=== PATIENT | male | born 1955 | race Caucasian/White ===

== ENCOUNTER 2017-07-11 05:26 | Inpatient (IN) | payer OTHER ==
[2017-07-11] MEDS ORDERED: NS 0.9% 1000 ML* 2,000 ML IV ONE (06:06)
[2017-07-11] MEDS ORDERED: Ondansetron INJ* 2 MG/ML VIAL IV ONE (06:06)
[2017-07-11] MEDS ORDERED: Pantoprazole IV* 40 MG IV ONE (06:06)
[2017-07-11] MEDS ORDERED: Al Hydrox/Mg Hydrox/Simet LIQ* 30 ML UDC PO ONE (06:06)
[2017-07-11] MEDS ORDERED: Lidocaine 2% VISCOUS* 15 ML UDC PO ONE (06:06)
[2017-07-11 06:55] LABS: ABS Basophils 0.2 10^3/ul (0-0.2); ABS Eosinophils 0.2 10^3/ul (0-0.6); ABS Lymphocytes 1.7 10^3/ul (1.0-4.8); ABS Neutrophils 10.1 10^3/ul (1.5-7.7); ABS Nucleated RBC 0 10^3/ul; Eosinophil % 1.3 % (0-6); Hematocrit 25 % (42-52); Hemoglobin 8.5 g/dl (14.0-18.0); Lymphocyte % 13.1 % (25-47); Mean Corpuscular HGB Conc 34 g/dl (31-36); Mean Corpuscular Hemoglobin 33 pg (27-31); Mean Corpuscular Volume 96 fL (80-94); Mean Platelet Volume 6 um3 (7.4-10.4); Nucleated Red Blood Cells % 0; Platelet Count 640 10^3/ul (150-450); Red Blood Count 2.59 10^6/ul (4.0-5.4); Red Cell Distribution Width 15 % (10.5-15); White Blood Count 13.2 10^3/ul (3.5-10.8)
[2017-07-11 07:05] LABS: EGFR Non-African American 76.6 (>60)
[2017-07-11 07:12] LABS: INR 0.86 (0.77-1.02)
--- NOTE | 2017-07-11 07:28 | ED ---
Roseline Long Thomas, scribed for Moses Rodriguez MD on 07/11/17 at 0608 . Abdominal Pain/Male - HPI Summary HPI Summary: The patient is a 61 year old male presenting to the emergency department complaining of abdominal pain for the last three weeks. The pain is rated 10/ 10. The pain radiates to his back. The pain is alleviated by food. The patient had a similar episode of abdominal pain last year that coincided with taking many caffeine pills. The patient additionally complains of nausea, vomiting, and black stools. He has been taking Pepto Bismol. The patient denies constipation. - History of Current Complaint Chief Complaint: EDAbdPain Stated Complaint: ABD PAIN, VOMITING, WEAKNESS Time Seen by Provider: 07/11/17 05:59 Hx Obtained From: Patient Onset/Duration: Lasting Weeks - 3, Still Present Timing: Lasting Weeks - 3 Severity Currently: Severe Pain Intensity: 10 Pain Scale Used: 0-10 Numeric Aggravating Factor(s): Nothing Alleviating Factor(s): Other: - Taking food Associated Signs And Symptoms: Positive: Other - Nausea, vomiting, black stools ; NEGATIVE: constipation - Allergies/Home Medications Allergies/Adverse Reactions: Allergies Allergy/AdvReac Type Severity Reaction Status Date / Time No Known Allergies Allergy Verified 07/11/17 05:32 PMH/Surg Hx/FS Hx/Imm Hx Sensory History: Denies: Hx Legally Blind EENT History: Denies: Hx Deafness Infectious Disease History: No Infectious Disease History: Denies: Traveled Outside the [place] in Last 30 Days - Family History Known Family History: Positive: Other - Patient denies any family history of disease - Social History Alcohol Use: None Substance Use Type: Reports: Excessive Caffeine, Marijuana Smoking Status (MU): Heavy Every Day Tobacco Smoker Review of Systems Negative: Fever Positive: Abdominal Pain, Vomiting, Nausea, Other - black stools; NEGATIVE: constipation All Other Systems Reviewed And Are Negative: Yes Physical Exam - Summary Physical Exam Summary: General: well-appearing, mild pain distress Skin: warm, color reflects adequate perfusion, dry Head: normal Eyes: EOMI, GLADYS ENT: normal Neck: supple, nontender Respiratory: CTA, breath sounds present Cardiovascular: RRR Abdomen: Soft. He is tender to the epigastrium. Bowel: Hypoactive. Musculoskeletal: normal, strength/ROM intact Neurological: normal, sensory/motor intact, A&O x3 Psychological: affect/mood appropriate Triage Information Reviewed: Yes Vital Signs On Initial Exam: Initial Vitals Temp Pulse Resp BP Pulse Ox 98.5 F 134 23 138/98 94 07/11/17 05:29 07/11/17 05:29 07/11/17 05:29 07/11/17 05:29 07/11/17 05:29 Vital Signs Reviewed: Yes Diagnostics - Vital Signs Vital Signs Temp Pulse Resp BP Pulse Ox 07/11/17 05:29 98.5 F 134 23 138/98 94 - Laboratory Lab Results: Lab Results 07/11/17 07/11/17 07/11/17 Range/Units 06:00 06:00 06:00 WBC 13.2 H (3.5-10.8) 10^3/ul RBC 2.59 L (4.0-5.4) 10^6/ul Hgb 8.5 L (14.0-18.0) g/dl Hct 25 L (42-52) % MCV 96 H (80-94) fL MCH 33 H (27-31) pg MCHC 34 (31-36) g/dl RDW 15 (10.5-15) % Plt Count 640 H (150-450) 10^3/ul MPV 6 L (7.4-10.4) um3 Neut % (Auto) 76.6 (38-83) % Lymph % (Auto) 13.1 L (25-47) % Wake % (Auto) 7.8 (1-9) % Eos % (Auto) 1.3 (0-6) % Baso % (Auto) 1.2 (0-2) % Absolute Neuts (auto) 10.1 H (1.5-7.7) 10^3/ul Absolute Lymphs (auto) 1.7 (1.0-4.8) 10^3/ul Absolute Monos (auto) 1.0 H (0-0.8) 10^3/ul Absolute Eos (auto) 0.2 (0-0.6) 10^3/ul Absolute Basos (auto) 0.2 (0-0.2) 10^3/ul Absolute Nucleated RBC 0 10^3/ul Nucleated RBC % 0 INR (Anticoag Therapy) 0.86 (0.77-1.02) APTT 26.4 (26.0-36.3) seconds Sodium 135 (133-145) mmol/L Potassium 4.4 (3.5-5.0) mmol/L Chloride 99 L (101-111) mmol/L Carbon Dioxide 28 (22-32) mmol/L Anion Gap 8 (2-11) mmol/L BUN 33 H (6-24) mg/dL Creatinine 0.99 (0.67-1.17) mg/dL Est GFR ( Amer) 98.5 (>60) Est GFR (Non-Af Amer) 76.6 (>60) BUN/Creatinine Ratio 33.3 H (8-20) Glucose 117 H (70-100) mg/dL Lactic Acid (0.5-2.0) mmol/L Calcium 9.4 (8.6-10.3) mg/dL Total Bilirubin 0.20 (0.2-1.0) mg/dL AST 14 (13-39) U/L ALT 15 (7-52) U/L Alkaline Phosphatase 73 (34-104) U/L Troponin I 0.00 (<0.04) ng/mL C-Reactive Protein 7.25 H (< 5.00) mg/L Total Protein 7.0 (6.4-8.9) g/dL Albumin 4.1 (3.2-5.2) g/dL Globulin 2.9 (2-4) g/dL Albumin/Globulin Ratio 1.4 (1-3) Lipase 41 (11.0-82.0) U/L 07/11/17 Range/Units 06:00 WBC (3.5-10.8) 10^3/ul RBC (4.0-5.4) 10^6/ul Hgb (14.0-18.0) g/dl Hct (42-52) % MCV (80-94) fL MCH (27-31) pg MCHC (31-36) g/dl RDW (10.5-15) % Plt Count (150-450) 10^3/ul MPV (7.4-10.4) um3 Neut % (Auto) (38-83) % Lymph % (Auto) (25-47) % Wake % (Auto) (1-9) % Eos % (Auto) (0-6) % Baso % (Auto) (0-2) % Absolute Neuts (auto) (1.5-7.7) 10^3/ul Absolute Lymphs (auto) (1.0-4.8) 10^3/ul Absolute Monos (auto) (0-0.8) 10^3/ul Absolute Eos (auto) (0-0.6) 10^3/ul Absolute Basos (auto) (0-0.2) 10^3/ul Absolute Nucleated RBC 10^3/ul Nucleated RBC % INR (Anticoag Therapy) (0.77-1.02) APTT (26.0-36.3) seconds Sodium (133-145) mmol/L Potassium (3.5-5.0) mmol/L Chloride (101-111) mmol/L Carbon Dioxide (22-32) mmol/L Anion Gap (2-11) mmol/L BUN (6-24) mg/dL Creatinine (0.67-1.17) mg/dL Est GFR ( Amer) (>60) Est GFR (Non-Af Amer) (>60) BUN/Creatinine Ratio (8-20) Glucose (70-100) mg/dL Lactic Acid 1.0 (0.5-2.0) mmol/L Calcium (8.6-10.3) mg/dL Total Bilirubin (0.2-1.0) mg/dL AST (13-39) U/L ALT (7-52) U/L Alkaline Phosphatase (34-104) U/L Troponin I (<0.04) ng/mL C-Reactive Protein (< 5.00) mg/L Total Protein (6.4-8.9) g/dL Albumin (3.2-5.2) g/dL Globulin (2-4) g/dL Albumin/Globulin Ratio (1-3) Lipase (11.0-82.0) U/L Result Diagrams: 07/11/17 06:00 07/11/17 06:00 Lab Statement: Any lab studies that have been ordered have been reviewed, and results considered in the medical decision making process. - CT CT Abd/Pel CT Interpretation Completed By: ED Physician - CT Abd/Pel is ordered--see [facility] - EKG 06:20 Cardiac Rate: Tachycardia EKG Rhythm: Sinus Tachycardia - at [address] Segment: Normal Ectopy: None Abdominal Pain Fem Course/Dx - Course Course Of Treatment: Medications reviewed. BP noted and patient urged primary care follow-up. CT AND DISPOSITION PENDING AT SHIFT CHANGE - Diagnoses Provider Diagnoses: Elevated BP without diagnosis of hypertension, Abdominal pain Discharge - Discharge Plan Condition: Stable Disposition: OTHER Discharge Disposition Comment: . Referrals: No Primary Care Phys,NOPCP [Primary Care Provider] - The documentation as recorded by the Roseline gordon Thomas accurately reflects the service I personally performed and the decisions made by me, Moses Rodriguez MD.
[2017-07-11 07:30] LABS: Urine Appearance Cloudy; Urine Blood Negative (Negative); Urine Color Yellow; Urine Ketones Negative (Negative); Urine Protein Negative (Negative); Urine Specific Gravity 1.016 (1.010-1.030); Urine Urobilinogen Negative (Negative)
[2017-07-11] MEDS ORDERED: Iohexol 300* (CONTRAST) 10 ML SDV IV ONE (08:24)
--- NOTE | 2017-07-11 09:04 | RAD ---
INDICATION: Abdominal pain and nausea for 3 weeks COMPARISON: None TECHNIQUE: Axial source images were obtained from the hemidiaphragms to the symphysis pubis following administration of oral and intravenous contrast. 60 mL Omnipaque 300 was utilized. Coronal and sagittal reconstructed images were acquired. Lung bases: There is mild right basilar atelectasis or scarring. Liver: The liver is normal in size. There is an 8 mm left hepatic lobe cyst. There is no ductal dilatation. Gallbladder: There are no calcified gallstones. There is no evidence of wall thickening or pericholecystic fluid. Spleen: The spleen is normal in size. There are several splenic calcifications. Pancreas: There is no focal pancreatic mass or ductal dilatation. Adrenal glands: There is no evidence of adrenal mass. Kidneys: The kidneys are normal in size and position. There are prompt nephrograms and there is prompt excretion bilaterally. There are no renal parenchymal masses. There is no evidence of nephrolithiasis. Adenopathy: There is no evidence of adenopathy by size criteria. Fluid collections: There are no free or localized fluid collections. Vessels:There are no significant atherosclerotic changes involving the aorta. There is no focal aneurysm. The iliac vessels are normal in caliber. The IVC appears normal. GI tract: There are no acute CT bowel findings. There is no obstruction. The stomach and small bowel appear normal. There is retained stool and mild colonic redundancy. There are scattered diverticula of the sigmoid colon with mild wall thickening. This may be related to chronic change. There is no perienteric stranding to suggest acute diverticulitis. The appendix is visualized and appears normal. Pelvic organs: The prostate and seminal vesicles appear normal Bladder: There are no bladder masses. Abdominal and pelvic soft tissues: The extraperitoneal abdominal and pelvic soft tissues appear normal.. Osseous structures: There are no acute osseous findings. There is lumbar spine straightening with advanced degenerative disc disease at L1-L2. Other: None IMPRESSION: NO ACUTE CT FINDINGS. NO MASS OR INFLAMMATORY CHANGES. RETAINED STOOL WITH SCATTERED DIVERTICULA OF THE SIGMOID COLON.
[2017-07-11] MEDS ORDERED: Morphine INJ* 4 MG/ML 1 ML CARPUJECT IV ONE (09:28)
[2017-07-11] MEDS: Pantoprazole IV* 80 MG in NS 0.9% 250 ML* 250 ML IV SCH ×2 (09:54→20:23)
--- NOTE | 2017-07-11 10:15 | ADMNOTE ---
Subjective Date of Service: 07/11/17 Interval History: ADMISSION HISTORY AND PHYSICAL EXAM: Allergies Allergy/AdvReac Type Severity Reaction Status Date / Time No Known Allergies Allergy Verified 07/11/17 05:32 Home Medications Medication Instructions Recorded Confirmed Type Lysktay-Cfctqkcwyphee-Vmyetirz 1 tab PO Q1H PRN 12/23/12 07/11/17 History [Excedrin Migraine] HPI: The patient states he developed epigastric pain 3 weeks ago and started taking ASA/caffeine many per day for this. He occ vomits milky or vega emesis. He started taking Pepto-Bismol and began having black stools, one per day. The pain got worse and he had his sister drive him to the ED. Family History: Findings - unremakable Social History: Findings - Lives alone. Single. Retired. His sister Trini Lerma is his SDM. Heavy alcohol (over 2 cases beer per day) until about 1 yr ago. Smoker. Past Medical History: Findings - Never hospitalized, no surgery. Review of Systems - Review of Systems Constitutional Symptoms: Positive: Weight Loss - 25-30 lbs in past few months. Dermatology: Positive: Normal HEENT: Positive: Normal Eyes: Positive: Normal Thyroid: Positive: Normal Pulmonary: Positive: Other - hyperventilation this AM Cardiology: Positive: Normal Gastroenterology: Positive: Abdominal Pain, Vomiting Genital - Urinary: Positive: Normal Musculoskeletal: Positive: Low Back Pain Endocrinology: Positive: Normal Hematologic/Lymphatic: Positive: Anemia Neurology: Positive: Normal Psychiatry: Positive: Normal Allergic/Immunologic: Negative: Hx Anaphylaxis, Hx Angioedema, Hx Environmental, Hx Seasonal, Athsma, Hx HIV, Immunocompromise, Swollen Glands LymphNodes, Other Objective Active Medications: Pantoprazole Sodium 80 mg/ (Sodium Chloride) 250 mls @ 25 mls/hr IV Q10H BEBA Last Admin: 07/11/17 09:54 Dose: 25 mls/hr Vital Signs - 8 hr 07/11/17 07/11/17 07/11/17 09:41 09:44 09:54 Temperature Pulse Rate 102 Respiratory 14 18 Rate Blood Pressure 152/82 (mmHg) O2 Sat by Pulse 97 Oximetry 07/11/17 10:09 Temperature 0 F Pulse Rate 0 Respiratory 0 Rate Blood Pressure 00/0 (mmHg) O2 Sat by Pulse 0 Oximetry Oxygen Devices in Use Now: None Appearance: Alert, sitting up in ICU bed. In fair spirits. Looks comfortable. Ears/Nose/Mouth/Throat: Clear Oropharnyx, Mucous Membranes Moist Neck: NL Appearance and Movements; NL JVP, No Thyroid Enlargement, Masses Respiratory: Symmetrical Chest Expansion and Respiratory Effort, Clear to Auscultation, Clear to Percussion Cardiovascular: RRR, No Edema, - - 1/6 systolic murmur across precordium, reg Extremities: No Edema, No Clubbing, Cyanosis, - Skin: No Rash or Ulcers, No Nodules or Sclerosis Neurological: Alert and Oriented x 3, NL Sensation Result Diagrams: 07/11/17 06:00 07/11/17 06:00 Additional Lab and Data: Lab Results 07/11/17 07/11/17 07/11/17 Range/Units 06:00 06:00 06:00 WBC 13.2 H (3.5-10.8) 10^3/ul RBC 2.59 L (4.0-5.4) 10^6/ul Hgb 8.5 L (14.0-18.0) g/dl Hct 25 L (42-52) % MCV 96 H (80-94) fL MCH 33 H (27-31) pg MCHC 34 (31-36) g/dl RDW 15 (10.5-15) % Plt Count 640 H (150-450) 10^3/ul MPV 6 L (7.4-10.4) um3 Neut % (Auto) 76.6 (38-83) % Lymph % (Auto) 13.1 L (25-47) % Woodruff % (Auto) 7.8 (1-9) % Eos % (Auto) 1.3 (0-6) % Baso % (Auto) 1.2 (0-2) % Absolute Neuts (auto) 10.1 H (1.5-7.7) 10^3/ul Absolute Lymphs (auto) 1.7 (1.0-4.8) 10^3/ul Absolute Monos (auto) 1.0 H (0-0.8) 10^3/ul Absolute Eos (auto) 0.2 (0-0.6) 10^3/ul Absolute Basos (auto) 0.2 (0-0.2) 10^3/ul Absolute Nucleated RBC 0 10^3/ul Nucleated RBC % 0 INR (Anticoag Therapy) 0.86 (0.77-1.02) APTT 26.4 (26.0-36.3) seconds Sodium 135 (133-145) mmol/L Potassium 4.4 (3.5-5.0) mmol/L Chloride 99 L (101-111) mmol/L Carbon Dioxide 28 (22-32) mmol/L Anion Gap 8 (2-11) mmol/L BUN 33 H (6-24) mg/dL Creatinine 0.99 (0.67-1.17) mg/dL Est GFR ( Amer) 98.5 (>60) Est GFR (Non-Af Amer) 76.6 (>60) BUN/Creatinine Ratio 33.3 H (8-20) Glucose 117 H (70-100) mg/dL Lactic Acid (0.5-2.0) mmol/L Calcium 9.4 (8.6-10.3) mg/dL Total Bilirubin 0.20 (0.2-1.0) mg/dL AST 14 (13-39) U/L ALT 15 (7-52) U/L Alkaline Phosphatase 73 (34-104) U/L Troponin I 0.00 (<0.04) ng/mL C-Reactive Protein 7.25 H (< 5.00) mg/L Total Protein 7.0 (6.4-8.9) g/dL Albumin 4.1 (3.2-5.2) g/dL Globulin 2.9 (2-4) g/dL Albumin/Globulin Ratio 1.4 (1-3) Lipase 41 (11.0-82.0) U/L 07/11/17 Range/Units 06:00 WBC (3.5-10.8) 10^3/ul RBC (4.0-5.4) 10^6/ul Hgb (14.0-18.0) g/dl Hct (42-52) % MCV (80-94) fL MCH (27-31) pg MCHC (31-36) g/dl RDW (10.5-15) % Plt Count (150-450) 10^3/ul MPV (7.4-10.4) um3 Neut % (Auto) (38-83) % Lymph % (Auto) (25-47) % Woodruff % (Auto) (1-9) % Eos % (Auto) (0-6) % Baso % (Auto) (0-2) % Absolute Neuts (auto) (1.5-7.7) 10^3/ul Absolute Lymphs (auto) (1.0-4.8) 10^3/ul Absolute Monos (auto) (0-0.8) 10^3/ul Absolute Eos (auto) (0-0.6) 10^3/ul Absolute Basos (auto) (0-0.2) 10^3/ul Absolute Nucleated RBC 10^3/ul Nucleated RBC % INR (Anticoag Therapy) (0.77-1.02) APTT (26.0-36.3) seconds Sodium (133-145) mmol/L Potassium (3.5-5.0) mmol/L Chloride (101-111) mmol/L Carbon Dioxide (22-32) mmol/L Anion Gap (2-11) mmol/L BUN (6-24) mg/dL Creatinine (0.67-1.17) mg/dL Est GFR ( Amer) (>60) Est GFR (Non-Af Amer) (>60) BUN/Creatinine Ratio (8-20) Glucose (70-100) mg/dL Lactic Acid 1.0 (0.5-2.0) mmol/L Calcium (8.6-10.3) mg/dL Total Bilirubin (0.2-1.0) mg/dL AST (13-39) U/L ALT (7-52) U/L Alkaline Phosphatase (34-104) U/L Troponin I (<0.04) ng/mL C-Reactive Protein (< 5.00) mg/L Total Protein (6.4-8.9) g/dL Albumin (3.2-5.2) g/dL Globulin (2-4) g/dL Albumin/Globulin Ratio (1-3) Lipase (11.0-82.0) U/L Assess/Plan/Problems-Billing Assessment: - Patient Problems (1) UGI bleed Current Visit: Yes Status: Acute Code(s): K92.2 - GASTROINTESTINAL HEMORRHAGE, UNSPECIFIED SNOMED Code(s): 80116526 Comment: EGD 07/11. CBC, BMP 2/. (2) Chronic alcohol abuse Current Visit: Yes Status: Acute Code(s): F10.10 - ALCOHOL ABUSE, UNCOMPLICATED SNOMED Code(s): 335554861 Comment: Pt states he stopped heavy drinking about a year ago. (3) Tobacco abuse Current Visit: Yes Status: Acute Code(s): Z72.0 - TOBACCO USE SNOMED Code( s): 235564070 Comment: Pt advised to quit smoking and avoid second hand smoke. Nictoine patch ordered.
[2017-07-11] MEDS: Nicotine PATCH 14 MG/24 HR* PATCH TRANSDERM SCH (12:12)
[2017-07-11] MEDS ORDERED: NS 0.9% 1000 ML* 1,000 ML IV SCH (12:15)
[2017-07-11] MEDS: Morphine INJ* 10 MG/ML 1 ML CARPUJECT IV PRN ×3 (13:02→21:58)
[2017-07-11] MEDS ORDERED: fentaNYL* 50 MCG/ML 2 ML VIAL (100 MCG VIAL) ONE (16:13)
[2017-07-11] MEDS ORDERED: Midazolam* 1 MG/ML 10 ML VIAL (10 MG) ONE (16:14)
[2017-07-11] MEDS ORDERED: Naloxone* 0.4 MG/ML 1 ML VIAL ONE (16:23)
[2017-07-11] MEDS ORDERED: Flumazenil* 0.1 MG/ML 5 ML MDV ONE (16:23)
[2017-07-11] MEDS: NS 0.9% 1000 ML* 1,000 ML IV SCH (18:37)
--- NOTE | 2017-07-11 21:32 | CONS ---
CONSULTATION REPORT: DATE OF CONSULT: 07/11/17 REQUESTING PHYSICIAN: Berhane Clark MD INDICATION: Melena. NARRATIVE: Mr. Lerma is a 61-year-old gentleman who comes in with 3 weeks for epigastric pain. He started taking aspirin and caffeine tablets due to this pain. He states that he has been vomiting usually frothy material, nonbloody. His stools have been black. However, he blames this on the Pepto-Bismol he has been taking. He does state that he has lost approximately 10 to 15 pounds over the past few months. He denies any acid reflux. No dysphagia. No change in his bowel habits, constipation, or diarrhea. He was an active drinker up until about a year ago. PAST MEDICAL HISTORY: None. SURGERIES: None. SOCIAL HISTORY: He quit alcohol a year ago. No tobacco. REVIEW OF SYSTEMS: 12 systems were reviewed and other than mentioned in the HPI were unremarkable. PHYSICAL EXAM: Vital signs were stable. Temperature is 98.7, blood pressure 135/82, heart rate of 89. General: Middle-aged appearing male, in no apparent distress. Alert, oriented, pleasant, fluent. HEENT: Mucous membranes are moist. Dentition is poor. Neck: Supple. Trachea is midline. Skin: Warm and dry. Numerous tattoos. Heart: Regular rate and rhythm, tachy. Lungs: Clear to auscultation. Abdomen: Positive bowel sounds. Soft, nontender, nondistended. DIAGNOSTIC STUDIES/LAB DATA: Labs of note, his hemoglobin is 8.5, white count of 13.2, platelets of 640, INR is 0.86, chloride is 99, BUN is 33. C-reactive protein 7.25. He has got a CT, which shows no acute GI pathology other than diverticulosis. ASSESSMENT AND PLAN: A 61-year-old gentleman with melena and anemia, who takes a large amount of aspirin and has abdominal pain. I would like to perform an upper endoscopy to evaluate for any peptic ulcer disease, erosive esophagitis. Given his alcohol use, any varices, I will make arrangements for his EGD in the very near future. He needs to be on PPI and avoid all nonsteroidals. [id number]/[facility] #: [id number] [facility]
[2017-07-12] MEDS: Nicotine Patch Removal NOTE PATCH OFF SCH ×2 (00:21→20:32)
--- NOTE | 2017-07-12 00:47 | PRO ---
DATE OF PROCEDURE: 07/11/17 - ROOM #ICU-06 LOCATION: Performed in the ICU. PROCEDURE: EGD. INDICATION: Melena and anemia. REFERRING PHYSICIAN: Dr. Clark. MEDICATIONS GIVEN: 10 mg IV Versed, 50 mcg IV fentanyl. DESCRIPTION OF PROCEDURE: After the EGD procedure including the risks, benefits , and alternatives not limited to perforation, surgery and/or were explained to the patient, written consent was then obtained, IV medication was given and a bite- block was placed between the teeth. An Olympus gastroscope was then inserted into the patient's mouth, advanced down the esophagus, into the stomach and into the distal duodenum. In the esophagus, there were numerous large ulcers at the GE junction, they were all clean base. This was consistent with grade C erosive esophagitis. He does have a large hiatal hernia. The patient did become somewhat animated. At this point, additional doses of Versed and fentanyl were given. I was able to navigate through a medium size hiatal hernia into the body of the stomach. In the prepyloric region, there was a medium-sized ulcer. It again was clean base. There was no evidence of bleeding and then I was able to get down into the small intestine for brief views of the duodenal bulb. Again, the patient was very animated and was starting to grab at the scope, despite the fact we had soft on. I was able to get a biopsy for H. pylori and then needed to withdraw the scope due to the patient's combative nature. The scope was withdrawn. He did settle down very nicely once the scope was withdrawn from the patient. IMPRESSION: 1. Complete upper endoscopy into the duodenum bulb with biopsy. 2. Grade C erosive esophagitis. 3. Prepyloric ulcer nonbleeding. 4. Duodenal erosions. 5. Biopsy for H. pylori. 6. Likely the ulcerations in his stomach and duodenum are due to his massive aspirin use. He also has erosive esophagitis from gastroesophageal reflux disease. I would like him to use omeprazole 40 mg twice a day. I would like to repeat his endoscopy in the next 1 to 2 weeks for multiple reasons; one is to confirm healing of the ulcers, two is to biopsy for Oh's esophagus and three given the fact that the patient was very combative during this procedure, I would like to take a better look due to limited view due the patient's combativeness. [id number]/[facility] #: [id number] ERICH
[2017-07-12] MEDS: Morphine INJ* 10 MG/ML 1 ML CARPUJECT IV PRN ×4 (02:08→11:22)
[2017-07-12] MEDS ORDERED: Ondansetron INJ* 2 MG/ML VIAL ONE (02:17)
[2017-07-12] MEDS: Ondansetron INJ* 2 MG/ML VIAL IV PRN ×3 (02:19→18:47)
[2017-07-12 05:38] LABS: ABS Basophils 0.4 10^3/ul (0-0.2); ABS Eosinophils 0.2 10^3/ul (0-0.6); ABS Lymphocytes 1.6 10^3/ul (1.0-4.8); ABS Monocytes 0.9 10^3/ul (0-0.8); ABS Neutrophils 10.7 10^3/ul (1.5-7.7); ABS Nucleated RBC 0 10^3/ul; Eosinophil % 1.3 % (0-6); Hematocrit 23 % (42-52); Hemoglobin 7.7 g/dl (14.0-18.0); Lymphocyte % 11.3 % (25-47); Mean Corpuscular HGB Conc 33 g/dl (31-36); Mean Corpuscular Hemoglobin 32 pg (27-31); Mean Corpuscular Volume 97 fL (80-94); Mean Platelet Volume 6 um3 (7.4-10.4); Nucleated Red Blood Cells % 0; Platelet Count 576 10^3/ul (150-450); Red Blood Count 2.39 10^6/ul (4.0-5.4); Red Cell Distribution Width 15 % (10.5-15); White Blood Count 13.7 10^3/ul (3.5-10.8)
[2017-07-12 05:51] LABS: EGFR Non-African American 102.4 (>60)
[2017-07-12] MEDS: Pantoprazole IV* 80 MG in NS 0.9% 250 ML* 250 ML IV SCH ×2 (06:02→17:15)
[2017-07-12] MEDS: Nicotine PATCH 14 MG/24 HR* PATCH TRANSDERM SCH (08:14)
[2017-07-12] MEDS: NS 0.9% 1000 ML* 1,000 ML IV SCH ×2 (10:35→17:16)
--- NOTE | 2017-07-12 13:31 | PN ---
Subjective Date of Service: 07/12/17 Interval History: Intermittent nausea. Pain less today, still asks for MS frequently. Family History: Findings - unremakable Social History: Findings - Lives alone. Single. Retired. His sister Trini Lerma is his SDM. Heavy alcohol (over 2 cases beer per day) until about 1 yr ago. Smoker. Past Medical History: Findings - Never hospitalized, no surgery. Objective Active Medications: Pantoprazole Sodium 80 mg/ (Sodium Chloride) 250 mls @ 25 mls/hr IV Q10H [facility] Stop: 07/13/17 08:00 Last Admin: 07/12/17 06:02 Dose: 25 mls/hr Sodium Chloride (Ns 0.9% 1000 Ml*) 1,000 mls @ 60 mls/hr IV PER RATE [facility] Stop: 07/13/17 06:00 Last Admin: 07/12/17 10:35 Dose: 60 mls/hr Morphine Sulfate (Morphine Inj (Syringe)*) 6 mg IV Q3H PRN PRN Reason: SEVERE PAIN Last Admin: 07/12/17 11:22 Dose: 6 mg Nicotine (Nicotine Patch 14 Mg/24 Hr*) 1 patch TRANSDERM DAILY [facility] Last Admin: 07/12/17 08:14 Dose: 1 patch Ondansetron HCl (Zofran Inj*) 4 mg IV Q6H PRN PRN Reason: NAUSEA Last Admin: 07/12/17 10:07 Dose: 4 mg Pharmacy Profile Note (Nicotine Patch Removal Note*) 1 note PATCH OFF 2100 [facility] Last Admin: 07/12/17 00:21 Dose: Not Given Trimethobenzamide HCl (Tigan Cap*) 300 mg PO QID [facility] Vital Signs - 8 hr 07/12/17 07/12/17 07/12/17 06:00 06:52 07:00 Temperature Pulse Rate 78 78 Respiratory 11 11 12 Rate Blood Pressure 107/62 104/61 (mmHg) O2 Sat by Pulse 96 99 Oximetry 07/12/17 07/12/17 07/12/17 08:00 08:01 08:14 Temperature 98.6 F Pulse Rate 94 89 Respiratory 18 15 15 Rate Blood Pressure 110/75 (mmHg) O2 Sat by Pulse 99 97 Oximetry 07/12/17 07/12/17 07/12/17 09:00 10:00 11:00 Temperature Pulse Rate 75 70 84 Respiratory 15 16 12 Rate Blood Pressure 112/66 113/71 123/73 (mmHg) O2 Sat by Pulse 95 97 98 Oximetry 07/12/17 07/12/17 07/12/17 11:22 12:00 13:00 Temperature 98.8 F Pulse Rate 78 75 Respiratory 18 19 12 Rate Blood Pressure 111/73 119/68 (mmHg) O2 Sat by Pulse 97 97 Oximetry Oxygen Devices in Use Now: None Appearance: Alert, sitting up in ICU bed. In good spirits. Looks comfortable. Eyes: No Scleral Icterus Respiratory: Symmetrical Chest Expansion and Respiratory Effort, Clear to Auscultation, Clear to Percussion Cardiovascular: NL Sounds; No Murmurs; No JVD, RRR, No Edema, - Abdominal: NL Sounds; No Tenderness; No Distention, No Hepatosplenomegaly, - Extremities: No Edema, No Clubbing, Cyanosis, - Skin: No Rash or Ulcers, No Nodules or Sclerosis, - Neurological: Alert and Oriented x 3, NL Sensation Result Diagrams: 07/12/17 05:26 07/12/17 05:26 Additional Lab and Data: Lab Results 07/11/17 07/11/17 07/11/17 Range/Units 06:00 06:00 06:00 WBC 13.2 H (3.5-10.8) 10^3/ul RBC 2.59 L (4.0-5.4) 10^6/ul Hgb 8.5 L (14.0-18.0) g/dl Hct 25 L (42-52) % MCV 96 H (80-94) fL MCH 33 H (27-31) pg MCHC 34 (31-36) g/dl RDW 15 (10.5-15) % Plt Count 640 H (150-450) 10^3/ul MPV 6 L (7.4-10.4) um3 Neut % (Auto) 76.6 (38-83) % Lymph % (Auto) 13.1 L (25-47) % [place] % (Auto) 7.8 (1-9) % Eos % (Auto) 1.3 (0-6) % Baso % (Auto) 1.2 (0-2) % Absolute Neuts (auto) 10.1 H (1.5-7.7) 10^3/ul Absolute Lymphs (auto) 1.7 (1.0-4.8) 10^3/ul Absolute Monos (auto) 1.0 H (0-0.8) 10^3/ul Absolute Eos (auto) 0.2 (0-0.6) 10^3/ul Absolute Basos (auto) 0.2 (0-0.2) 10^3/ul Absolute Nucleated RBC 0 10^3/ul Nucleated RBC % 0 INR (Anticoag Therapy) 0.86 (0.77-1.02) APTT 26.4 (26.0-36.3) seconds Sodium 135 (133-145) mmol/L Potassium 4.4 (3.5-5.0) mmol/L Chloride 99 L (101-111) mmol/L Carbon Dioxide 28 (22-32) mmol/L Anion Gap 8 (2-11) mmol/L BUN 33 H (6-24) mg/dL Creatinine 0.99 (0.67-1.17) mg/dL Est GFR ( Amer) 98.5 (>60) Est GFR (Non-Af Amer) 76.6 (>60) BUN/Creatinine Ratio 33.3 H (8-20) Glucose 117 H (70-100) mg/dL Lactic Acid (0.5-2.0) mmol/L Calcium 9.4 (8.6-10.3) mg/dL Total Bilirubin 0.20 (0.2-1.0) mg/dL AST 14 (13-39) U/L ALT 15 (7-52) U/L Alkaline Phosphatase 73 (34-104) U/L Troponin I 0.00 (<0.04) ng/mL C-Reactive Protein 7.25 H (< 5.00) mg/L Total Protein 7.0 (6.4-8.9) g/dL Albumin 4.1 (3.2-5.2) g/dL Globulin 2.9 (2-4) g/dL Albumin/Globulin Ratio 1.4 (1-3) Lipase 41 (11.0-82.0) U/L 07/11/17 Range/Units 06:00 WBC (3.5-10.8) 10^3/ul RBC (4.0-5.4) 10^6/ul Hgb (14.0-18.0) g/dl Hct (42-52) % MCV (80-94) fL MCH (27-31) pg MCHC (31-36) g/dl RDW (10.5-15) % Plt Count (150-450) 10^3/ul MPV (7.4-10.4) um3 Neut % (Auto) (38-83) % Lymph % (Auto) (25-47) % [place] % (Auto) (1-9) % Eos % (Auto) (0-6) % Baso % (Auto) (0-2) % Absolute Neuts (auto) (1.5-7.7) 10^3/ul Absolute Lymphs (auto) (1.0-4.8) 10^3/ul Absolute Monos (auto) (0-0.8) 10^3/ul Absolute Eos (auto) (0-0.6) 10^3/ul Absolute Basos (auto) (0-0.2) 10^3/ul Absolute Nucleated RBC 10^3/ul Nucleated RBC % INR (Anticoag Therapy) (0.77-1.02) APTT (26.0-36.3) seconds Sodium (133-145) mmol/L Potassium (3.5-5.0) mmol/L Chloride (101-111) mmol/L Carbon Dioxide (22-32) mmol/L Anion Gap (2-11) mmol/L BUN (6-24) mg/dL Creatinine (0.67-1.17) mg/dL Est GFR ( Amer) (>60) Est GFR (Non-Af Amer) (>60) BUN/Creatinine Ratio (8-20) Glucose (70-100) mg/dL Lactic Acid 1.0 (0.5-2.0) mmol/L Calcium (8.6-10.3) mg/dL Total Bilirubin (0.2-1.0) mg/dL AST (13-39) U/L ALT (7-52) U/L Alkaline Phosphatase (34-104) U/L Troponin I (<0.04) ng/mL C-Reactive Protein (< 5.00) mg/L Total Protein (6.4-8.9) g/dL Albumin (3.2-5.2) g/dL Globulin (2-4) g/dL Albumin/Globulin Ratio (1-3) Lipase (11.0-82.0) U/L Microbiology and Other Data: Microbiology 07/11/17 15:11 CLOtest - Final Gastric Antrum 07/11/17 11:00 Nasal Screen MRSA (PCR)([facility]) - Final Nasal Mrsa Not Detected Assess/Plan/Problems-Billing Assessment: - Patient Problems (1) UGI bleed Current Visit: Yes Status: Acute Code(s): K92.2 - GASTROINTESTINAL HEMORRHAGE, UNSPECIFIED SNOMED Code(s): 58754865 Comment: EGD 07/11. CBC, BMP 2/. Change to PO PPI /. Alternate IV MS with po oxycodone q 3hr PRN. Trimethobenzamide scheduled for nausea. (2) Chronic alcohol abuse Current Visit: Yes Status: Acute Code(s): F10.10 - ALCOHOL ABUSE, UNCOMPLICATED SNOMED Code(s): 859838580 Comment: Pt states he stopped heavy drinking about a year ago. (3) Tobacco abuse Current Visit: Yes Status: Acute Code(s): Z72.0 - TOBACCO USE SNOMED Code( s): 360648484 Comment: Pt advised to quit smoking and avoid second hand smoke. Nictoine patch ordered.
[2017-07-12] MEDS: Trimethobenzamide CAP* 300 MG PO SCH ×3 (13:40→20:34)
[2017-07-12] MEDS: Morphine INJ* 4 MG/ML 1 ML CARPUJECT IV PRN ×2 (14:22→20:28)
[2017-07-12] MEDS: oxyCODONE TAB* 5 MG TAB PO PRN (17:55)
[2017-07-13] MEDS: oxyCODONE TAB* 5 MG TAB PO PRN ×3 (00:45→12:19)
[2017-07-13] MEDS ORDERED: Mouth Piece, Nicotine* 1 EACH CARTRIDGE INH ONE (01:01)
[2017-07-13] MEDS ORDERED: Mouth Piece, Nicotine* 1 EACH CARTRIDGE ONE (01:18)
[2017-07-13] MEDS: Nicotine Inhaler* 10 MG AMP INH PRN ×2 (01:20→06:46)
[2017-07-13] MEDS: Morphine INJ* 4 MG/ML 1 ML CARPUJECT IV PRN ×2 (02:28→08:22)
[2017-07-13] MEDS: Pantoprazole IV* 80 MG in NS 0.9% 250 ML* 250 ML IV SCH (06:04)
[2017-07-13] MEDS: Ondansetron INJ* 2 MG/ML VIAL IV PRN (06:10)
[2017-07-13 08:11] VITALS: BP 117/70
[2017-07-13] MEDS: Trimethobenzamide CAP* 300 MG PO SCH ×2 (08:23→12:20)
[2017-07-13 08:52] LABS: Hematocrit 23 % (42-52); Hemoglobin 7.7 g/dl (14.0-18.0); Mean Corpuscular HGB Conc 34 g/dl (31-36); Mean Corpuscular Hemoglobin 33 pg (27-31); Mean Corpuscular Volume 97 fL (80-94); Mean Platelet Volume 6 um3 (7.4-10.4); Platelet Count 593 10^3/ul (150-450); Red Blood Count 2.35 10^6/ul (4.0-5.4); Red Cell Distribution Width 15 % (10.5-15); White Blood Count 7.8 10^3/ul (3.5-10.8)
[2017-07-13 08:57] LABS: ABS Basophils 0.1 10^3/ul (0-0.2); ABS Eosinophils 0.2 10^3/ul (0-0.6); ABS Lymphocytes 1.5 10^3/ul (1.0-4.8); ABS Monocytes 0.8 10^3/ul (0-0.8); ABS Neutrophils 5.1 10^3/ul (1.5-7.7); ABS Nucleated RBC 0 10^3/ul; Eosinophil % 2.2 % (0-6); Lymphocyte % 19.6 % (25-47); Nucleated Red Blood Cells % 0
[2017-07-13] MEDS ORDERED: Omeprazole CAP* 20 MG PO SCH (09:00)
[2017-07-13 09:06] LABS: EGFR Non-African American 93.9 (>60)
[2017-07-13] MEDS: Sucralfate SUSP 1 GM/10 ml 10 ML UDC PO SCH ×2 (09:24→12:20)
--- NOTE | 2017-07-13 10:26 | PN ---
"Progress Note - Progress Note Date of Service: 07/13/17 Note: Search Terms: gisela ramos, 1955 Search Date: 07/13/2017 10:25:22 AM The Drug Utilization Report below displays all of the controlled substance prescriptions, if any, that your patient has filled in the last twelve months. The information displayed on this report is compiled from pharmacy submissions to the Department, and accurately reflects the information as submitted by the pharmacies. This report was requested by: Enrico Clark | Reference #: [id number] There are no results for the search terms that you entered. Time spent on discharge 45 minutes."
[2017-07-13] MEDS ORDERED: Acetaminophen TAB* 325 MG PO PRN (10:30)
--- NOTE | 2017-07-14 06:31 | DS ---
CC: Dr. Ferrer DISCHARGE SUMMARY: DATE OF ADMISSION: DATE OF DISCHARGE: 07/13/17 HISTORY: This 61-year-old man presented with epigastric pain and black tarry stools. He had been taking aspirin and caffeine. The pain had lasted about 3 weeks. He started taking Pepto-Bismol as well. The pain got worse and he finally came to the emergency room. The patient was found to have a significant drop in his hemoglobin from prior measurement. The patient underwent an endoscopy. This showed a prepyloric ulcer, esophagitis, as well as jejunal ulcers. He did not receive any transfusions during his hospital stay. His hemoglobin fell from 8.5 to 7.7, but the repeat 24 hours later was unchanged at 7.7. He was no longer bleeding. His pain had gone down to level 5. He did require lot of narcotics. I suspect that we can taper the narcotics pretty well. He was advised not to use aspirin or NSAIDs. He can use Tylenol for pain. He was given the supply of oxycodone to use for pain as well, 40 of 5 mg tablets. He was taking two at a time here for pain relief. FINAL DIAGNOSES: 1. Peptic ulcer disease with esophagitis. 2. Prepyloric ulcer and jejunal ulcers. 3. Tobacco use disorder. 4. History of alcohol abuse. DISCHARGE MEDICATIONS: 1. Omeprazole 20 mg b.i.d. 2. Sucralfate tablets 1 gm a.c. and h.s. (Insurance would not pay for the susp. ) 3. Oxycodone 10 mg every 6 hours p.r.n. 4. Trimethobenzamide 300 mg q.i.d. p.r.n., nausea. [id number]/[facility] #: [id number] [facility]
--- NOTE | 2017-07-14 13:25 | ED ---
Marky Long Stephanie, scribed for Isaias Alexander MD on 07/11/17 at 0922 . Progress - Progress Note Progress Note: Dr. Ferrer is aware that the pt has upper GI bleed. - Results/Orders Results/Orders: Dr. Clark accepted the pt for admission. CT abdomen/pelvis shows: NO ACUTE CT FINDINGS. NO MASS OR INFLAMMATORY CHANGES. RETAINED STOOL WITH SCATTERED DIVERTICULA OF THE SIGMOID COLON. Course/Dx - Course Course Of Treatment: Medications reviewed. BP noted and patient urged primary care follow-up. Admit for emergent endoscopy and potential blood transfusion. - Diagnoses Provider Diagnoses: Elevated BP without diagnosis of hypertension, Abdominal pain, Upper GI bleed, Anemia - Provider Notifications Discussed Care Of Patient With: Bang Ferrer - Dr. Ferrer is aware that the pt has an upper GI bleed. Time Discussed With Above Provider: 09:12 Instructed by Provider To: Admit As Inpatient The documentation as recorded by the Marky gordon Stephanie accurately reflects the service I personally performed and the decisions made by Benjamin ayala Jerry, MD.
== END 2017-07-13 12:50 | disposition home or self-care (01) | DRG 241 ==
LOC: ED 05:26 → ICU 09:16 → MED 07-12 13:21
PROVIDERS: ADMIT Internal Medicine; ATTEND Internal Medicine
PROC: 0DB98ZX Excision of Duodenum, Via Natural or Artificial Opening Endoscopic, Diagnostic (ICD-10-PCS; principal; 2017-07-11)
DX: K25.9 Gastric ulcer, unspecified as acute or chronic, without hemorrhage or perforation (principal); K22.10 Ulcer of esophagus without bleeding; K28.9 Gastrojejunal ulcer, unspecified as acute or chronic, without hemorrhage or perforation; F12.90 Cannabis use, unspecified, uncomplicated; F17.200 Nicotine dependence, unspecified, uncomplicated; R03.0 Elevated blood-pressure reading, without diagnosis of hypertension; K44.9 Diaphragmatic hernia without obstruction or gangrene; K92.1 Melena; D64.9 Anemia, unspecified; K21.9 Gastro-esophageal reflux disease without esophagitis; T39.015A Adverse effect of aspirin, initial encounter; Y92.9 Unspecified place or not applicable
CPT/HCPCS: 36415; 74177; 80048; 80053; 80329; 81003; 83605; 83690; 84484; 85025; 85610; 85730; 86140; 86850; 86900; 86901; 87077; 87641; 93005; 99156; 99157; A9270-GY; G0480; J2250; J2270; J2310; J2405; J3010; Q9967

== ENCOUNTER 2017-11-20 17:44 | Emergency (ER) | payer OTHER ==
[2017-11-20] MEDS ORDERED: Morphine VIAL* 4 MG/ML VIAL (1 ml vial) IV ONE (19:34)
[2017-11-20] MEDS ORDERED: Metoclopramide IV* 5 MG/ML 2 ML VIAL IV SLOW PU ONE (19:34)
[2017-11-20] MEDS ORDERED: Pantoprazole IV* 40 MG IV ONE (19:34)
[2017-11-20] MEDS ORDERED: NS 0.9% 1000 ML* 1,000 ML IV ONE (19:35)
[2017-11-20 19:58] LABS: Hematocrit 28 % (42-52); Hemoglobin 8.7 g/dl (14.0-18.0); Mean Corpuscular HGB Conc 31 g/dl (31-36); Mean Corpuscular Hemoglobin 23 pg (27-31); Mean Corpuscular Volume 72 fL (80-94); Mean Platelet Volume 6.7 um3 (7.4-10.4); Platelet Count 420 10^3/ul (150-450); Red Blood Count 3.86 10^6/ul (4.00-5.40); Red Cell Distribution Width 25 % (10.5-15); White Blood Count 12.8 10^3/ul (3.5-10.8)
[2017-11-20 20:01] LABS: INR 0.94 (0.77-1.02)
[2017-11-20 20:13] LABS: EGFR Non-African American 65.8 (>60)
[2017-11-20 20:20] LABS: ABS Basophils 0.2 10^3/ul (0-0.2); ABS Eosinophils 0.1 10^3/ul (0-0.6); ABS Lymphocytes 1.4 10^3/ul (1.0-4.8); ABS Monocytes 1.1 10^3/ul (0-0.8); ABS Neutrophils 10.1 10^3/ul (1.5-7.7); ABS Nucleated RBC 0 10^3/ul; Eosinophil % 0.5 % (0-6); Lymphocyte % 10.7 % (25-47); Nucleated Red Blood Cells % 0
[2017-11-20] MEDS ORDERED: KCL 10 MEQ/50 ML IVPREMIX* 10 MEQ/50 ML BAG IV ONE (20:35)
[2017-11-20] MEDS ORDERED: Iohexol 300* (CONTRAST) 10 ML SDV IV ONE (20:54)
--- NOTE | 2017-11-20 22:06 | RAD ---
INDICATION: Abdominal pain. COMPARISON: Comparison is made with a prior CT of the abdomen and pelvis from July 11, 2017. TECHNIQUE: A CT scan of the abdomen and pelvis was performed with intravenous and with oral contrast following intravenous injection of 88 ml of Omnipaque 300 nonionic contrast. Contiguous axial sections were obtained from the lung bases through the symphysis pubis. Images were reconstructed in the coronal and sagittal planes. FINDINGS: There is mild dependent bilateral lower lobe subsegmental atelectasis. No pleural effusion is present. The liver is normal in size. There are 2 small fluid density lesions in the left hepatic lobe measuring 0.4 and 0.9 cm each which are too small to definitively characterize by CT although likely represent cysts and are unchanged from the prior exam. No calcified gallstones are seen. There are several coarse calcifications within the spleen which are unchanged. The pancreas appears to be within normal limits.. The kidneys and adrenal glands are normal in size. No hydronephrosis is seen. No significant focal renal abnormality is seen. The aorta is normal in caliber with mild calcific plaque present. No significant enlarged retroperitoneal lymph nodes are seen. The stomach, small and large bowel appear nondistended. The appendix is within normal limits. There is moderate sigmoid diverticulosis without evidence for diverticulitis or colitis. No free intraperitoneal air or fluid is seen. No significant focal osseous abnormality is seen. IMPRESSION: NO EVIDENCE FOR ACUTE FINDING OR CAUSE FOR THE PATIENT'S ABDOMINAL PAIN IS SEEN.
--- NOTE | 2017-11-20 23:04 | ED ---
Marisol Long Elizabeth, scribed for Raj Ortez MD on 11/20/17 at 1926 . Abdominal Pain/Male - HPI Summary HPI Summary: This patient is a 61 year old M presenting to [facility] with a chief complaint of upper abd pain since 3 days ago. The patient also reports that he had a syncopal episode a few days which resulted in him falling down some stairs and bumping his head. The patient rates the pain 6/10 in severity. Symptoms aggravated by nothing. Symptoms alleviated by nothing. Patient reports nausea, vomiting, constipation, recent weight loss, and decreased appetite. Patient denies diarrhea and fever. The patient notes that BM a few days ago which was normal in appearance. The patient reports that he was at [facility] 3-4 months ago with similar symptoms and was treated for a bleeding ulcer. The patient has a hx of smoking and alcoholism. The patient reports that he takes a lot of caffeine pills and ASA. - History of Current Complaint Chief Complaint: EDAbdPain Stated Complaint: ABD PAIN,NAUSEA Time Seen by Provider: 11/20/17 19:16 Hx Obtained From: Patient Onset/Duration: Lasting Days - 3 days, Still Present Timing: Constant, Lasting Days Severity Initially: Mild Severity Currently: Mild Pain Intensity: 6 Pain Scale Used: 0-10 Numeric Location: Epigastric Radiates: Yes Radiates to: Back Aggravating Factor(s): Nothing Alleviating Factor(s): Nothing Associated Signs And Symptoms: Positive: Constipation, Decreased Appetite, Nausea, Vomiting. Negative: Fever, Diarrhea - Allergies/Home Medications Allergies/Adverse Reactions: Allergies Allergy/AdvReac Type Severity Reaction Status Date / Time No Known Allergies Allergy Verified 11/20/17 19:23 PMH/Surg Hx/FS Hx/Imm Hx Sensory History: Reports: Hx Cataracts Denies: Hx Contacts or Glasses, Hx Legally Blind, Hx Deafness, Hx Hearing Aid Opthamlomology History: Reports: Hx Cataracts Denies: Hx Contacts or Glasses, Hx Legally Blind Infectious Disease History: No Infectious Disease History: Denies: Traveled Outside the [place] in Last 30 Days - Family History Known Family History: Positive: Unknown - THE PT DENIES FHx. HE IS A POOR HISTORIAN., Other - Patient denies any family history of disease - Social History Alcohol Use: Occasionally Substance Use Type: Reports: Excessive Caffeine, Marijuana Substance Use Comment - Amount & Last Used: last use of mj 2 weeks ago Smoking Status (MU): Heavy Every Day Tobacco Smoker Type: Cigarettes Review of Systems Negative: Fever Negative: Epistaxis Positive: Abdominal Pain, Vomiting, Nausea, Other - constipation. Negative: Diarrhea Musculoskeletal: Other - back pain All Other Systems Reviewed And Are Negative: Yes Physical Exam - Summary Physical Exam Summary: VITAL SIGNS: Reviewed. GENERAL: ~Patient is a well-developed and nourished MALE who is lying comfortable in the stretcher. Patient is not in any acute respiratory distress. HEAD AND FACE: No signs of trauma. No ecchymosis, hematomas or skull depressions. No sinus tenderness. EYES: PERRLA, EOMI x 2, No injected conjunctiva, no nystagmus. EARS: Hearing grossly intact. Ear canals and tympanic membranes are within normal limits. MOUTH: Oropharynx within normal limits. NECK: Supple, trachea is midline, no adenopathy, no JVD, no carotid bruit, no c- spine tenderness, neck with full ROM. CHEST: Symmetric, no tenderness at palpation LUNGS: Clear to auscultation bilaterally. No wheezing or crackles. CVS: Regular rate and rhythm, S1 and S2 present, no murmurs or gallops appreciated. ABDOMEN: Soft, epigastric tenderness. No signs of distention. No rebound no guarding, and no masses palpated. Bowel sounds are normal. EXTREMITIES: FROM in all major joints, no edema, no cyanosis or clubbing. NEURO: Alert and oriented x 3. No acute neurological deficits. Speech is normal and follows commands. SKIN: Dry and warm Triage Information Reviewed: Yes Vital Signs On Initial Exam: Initial Vitals Temp Pulse Resp BP Pulse Ox 98.2 F 108 15 160/85 97 11/20/17 17:47 11/20/17 17:47 11/20/17 17:47 11/20/17 17:47 11/20/17 17:47 Vital Signs Reviewed: Yes Diagnostics - Vital Signs Vital Signs Temp Pulse Resp BP Pulse Ox 11/20/17 17:47 98.2 F 108 15 160/85 97 - Laboratory Result Diagrams: 11/20/17 19:42 11/20/17 19:42 Lab Statement: Any lab studies that have been ordered have been reviewed, and results considered in the medical decision making process. - CT CT Abd/Pelvis CT Interpretation: No Acute Changes - IMPRESSION: NO EVIDENCE FOR ACUTE FINDING OR CAUSE FOR THE PATIENT'S ABDOMINAL PAIN IS SEEN. Dr. Ortez has reviewed this report. CT Interpretation Completed By: Radiologist - EKG 19:45 Cardiac Rate: NL - at 93 BPM EKG Rhythm: Sinus Rhythm EKG Interpretation: NSR at 93 bpm, no ischemic changes, nml axis, nml interval Abdominal Pain Fem Course/Dx - Course Course Of Treatment: Patient is 61 y/o M with PMHx of bleeding ulcer reports upper abd pain, N/V, weight loss, and decreased appetite since 3 days ago. Imaging and lab results were reviewed with the patient. In the ED course the patient was given morphine, Protonix, Reglan, and IV fluids. Patient will be discharged home with dx of gastritis and prescription for Protonix. The patient is advised to stop taking ASA and ibuprofen and to follow up with his primary care physician in 1-2 days. The patient is agreeable with this plan. - Diagnoses Provider Diagnoses: Gastritis Discharge - Sign-Out/Discharge Documenting (check all that apply): Discharge/Admit/Transfer - Discharge Plan Condition: Stable Disposition: HOME Discharge Disposition Comment: discharge home Prescriptions: Pantoprazole TAB (NF) [Protonix TAB (NF)] 40 mg PO DAILY #30 tab Patient Education Materials: Gastritis (ED) Referrals: Jack Wilkes MD [Primary Care Provider] - 2 Days (follow-up with primary care physician in 1-2 days) Additional Instructions: Follow up with primary care physician in 1-2 days. Return to the emergency department with any new or worsening symptoms. The documentation as recorded by the Marisol gordon Elizabeth accurately reflects the service I personally performed and the decisions made by Neelima ayala Abdul, MD.
[2017-11-20 23:08] VITALS: BP 162/92
== END 2017-11-20 23:07 | disposition home or self-care (01) ==
LOC: ED 17:44
DX: K29.70 Gastritis, unspecified, without bleeding (principal); F10.21 Alcohol dependence, in remission; F17.210 Nicotine dependence, cigarettes, uncomplicated; Z87.19 Personal history of other diseases of the digestive system
CPT/HCPCS: 36415; 74177; 80053; 82150; 83605; 83690; 83735; 85025; 85610; 85730; 86140; 93005; 96361; 96374; 96375; 99283; J2270; J2765; J3480; Q9967

== ENCOUNTER 2018-01-06 07:22 | Day surgery (SDC) | payer OTHER ==
[~2018-01-06 07:22] MED LIST: Acetaminophen TAB* 325 MG PO PRN; Buffered Lidocaine 0.9% SYRIN* 5 ML/SYR SYRINGE INTRADERM ONE
[2018-01-06] MEDS ORDERED: fentaNYL* 50 MCG/ML 2 ML VIAL (100 MCG VIAL) ONE (08:08)
[2018-01-06] MEDS ORDERED: Midazolam* 1 MG/ML 2 ML VIAL (2 MG) ONE (08:08)
[2018-01-06 09:24] VITALS: BP 118/72
[2018-01-06] MEDS ORDERED: Ketorolac 0.5% OPHTH (NF) 0.5 % 5 ML BTL ONE (14:12)
[2018-01-06] MEDS ORDERED: Cyclopentolate 1% OPTH.SOL* 2 ML BTL ONE (14:12)
[2018-01-06] MEDS ORDERED: acetaZOLAMIDE TAB* 250 MG ONE (14:12)
[2018-01-06] MEDS ORDERED: Tropicamide 1% OPTH.SOL* BTL ONE (14:12)
[2018-01-06] MEDS ORDERED: Tetracaine 0.5% OPTH.SOL 4 ML* 1 DROP BTL ONE (14:12)
[2018-01-06] MEDS ORDERED: Lidocaine 1%* 5 ML VIAL ONE (14:12)
[2018-01-06] MEDS ORDERED: Neomycin/Polymy/Dex OPHTH.OIN* 3.5 GM ONE (14:12)
[2018-01-06] MEDS ORDERED: Phenylephrine 2.5% OPTH.SOL* 2 ML BTL ONE (14:12)
[2018-01-06] MEDS ORDERED: Povidone Iodine 5% OPTH* 30 ML BTL ONE (14:12)
--- NOTE | 2018-01-07 01:06 | OP ---
DATE OF OPERATION: 01/06/18 - [facility] DATE OF : 53. SURGEON: Dionicio Shepherd M.D. ANESTHESIA: Monitored anesthesia care. PRE-OP DIAGNOSIS: Cataract, right eye. POST-OP DIAGNOSIS: Cataract, right eye. OPERATIVE PROCEDURE: Extracapsular cataract extraction of the right eye with intraocular lens implant. IMPLANTS: SN60WF 19.5 diopter lens to the right eye. COMPLICATIONS: None. DESCRIPTION OF PROCEDURE: The patient was given phenylephrine 2.5% and cyclopentolate 1% eye drops to the operative eye in the preoperative area. The patient was taken to the operating room where a time-out was taken to identify the correct patient, site, and side of the surgery. The patient's right eye was prepped and draped in the usual sterile fashion with 5% Betadine. A second time- out was taken to verify the correct patient, site, and side of surgery, and correct lens implant. A lid speculum was placed to the right eye. A 1-mm paracentesis blade was used to make a clear corneal incision in the superotemporal position. Preservative-free 1% lidocaine was injected into the anterior chamber. DisCoVisc was then injected into the anterior chamber. A 2.75 mm keratome blade was used to make a triplanar incision at the inferotemporal position. A cystotome initiated the capsulorrhexis, which was completed with Utrata forceps in a continuous and curvilinear manner. Hydrodissection of the lens was performed with BSS on a cannula. The lens could be spun in a capsular bag. The phacoemulsification handpiece was used with a divide and conquer technique to remove the nucleus with 28.48 CDE. The I /A handpiece was then removed with a residual cortical lens material. DisCoVisc was injected to inflate the capsular bag. The planned SN60WF 19.5 diopter lens was injected into the capsular bag. The residual DisCoVisc was removed from the eye with the I/A handpiece. The corneal incisions were hydrated and no leaks occurred at physiologic pressure around 20 mmHg per palpation. The lid speculum was removed and drapes removed. Maxitrol ointment was placed to the surface of the operative eye. An adhesive patch and shield was then placed on the operative eye. The patient was taken to the postoperative area in stable condition. 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 [id number]/[facility] #: [id number] [facility]
== END 2018-01-06 09:37 | disposition home or self-care (01) ==
LOC: OREAST 07:22
PROVIDERS: ATTEND Student in an Organized Health Care Education/Training Program
DX: H25.811 Combined forms of age-related cataract, right eye (principal); H21.81 Floppy iris syndrome; Z72.0 Tobacco use; H57.03 Miosis; D64.9 Anemia, unspecified; R55 Syncope and collapse; F32.9 Major depressive disorder, single episode, unspecified
CPT/HCPCS: A9270-GY; J2250; J3010; V2632

== ENCOUNTER 2022-02-23 13:01 | Inpatient (IN) ==
[2022-02-23] MEDS ORDERED: Pantoprazole VIAL 40 MG VIAL IV ONE (13:20)
[2022-02-23] MEDS ORDERED: Ondansetron 4 mg VIAL 2 MG/ML 2 ml VIAL IV ONE ×2 (13:20→15:26)
[2022-02-23] MEDS ORDERED: Lactated Ringers 1000 ml BAG 1,000 ML IV ONE ×2 (13:20→16:04)
[2022-02-23 13:37] LABS: Hematocrit 27 % (42-52); Hemoglobin 8.3 g/dL (14.0-18.0); Mean Corpuscular HGB Conc 31 g/dL (31-36); Mean Corpuscular Hemoglobin 31 pg (27-31); Mean Corpuscular Volume 99 fL (80-94); Mean Platelet Volume 6.2 fL (7.4-10.4); Platelet Count 729 10^3/uL (150-450); Red Blood Count 2.71 10^6 /uL (4.18-5.48); Red Cell Distribution Width 17 % (10-15); White Blood Count 27.7 10^3/uL (3.5-10.8)
[2022-02-23 14:13] LABS: Albumin 3.9 g/dL (3.2-5.2); Potassium 4.9 mmol/L (3.5-5.0); Total Bilirubin 0.3 mg/dL (0.2-1.0)
[2022-02-23 14:19] LABS: Total Protein 5.9 g/dL (6.4-8.9); eGFR CKD-EPI 43.6 (>60)
[2022-02-23 14:25] LABS: ABS Lymphocytes 0.7 10^3/ul (1.0-4.8); ABS Monocytes 1.2 10^3/ul (0-0.8); ABS Neutrophils 25.8 10^3/ul (1.5-7.7); Lymphocyte % 2.5 %
[2022-02-23 15:15] LABS: Activated Partial Thrombo Time 25.3 seconds (26.0-38.0); INR 1.19 (0.89-1.11)
[2022-02-23] MEDS ORDERED: Iodixanol (CONTRAST) 320 MG/ML 100 ML SDV IV ONE (15:26)
[2022-02-23 15:51] LABS: C Reactive Protein 5.02 mg/L (<8.01)
[2022-02-23] MEDS ORDERED: Piperacillin/Tazobac ADVAN 3.375 GM in NS 0.9% 100 ml BAG 100 ML IV ONE ×2 (16:13→17:23)
[2022-02-23 16:35] LABS: High Sensitivity Troponin 1 Hr 40 pg/mL (<20)
[2022-02-23] MEDS ORDERED: NS 0.9% 1000 ml BAG 2,000 ML IV ONE (16:38)
[2022-02-23] MEDS ORDERED: Acetaminophen IV 1 GM/100ML 1,000 MG/100 ML BAG IV PRN (17:19)
[2022-02-23] MEDS ORDERED: fentaNYL 100 mcg/2 ml 50 MCG/ML VIAL ONE (17:24)
[2022-02-23] MEDS ORDERED: Midazolam 10 mg/10 ml VIAL 1 mg/ml 10 ml VIAL (10 mg) ONE ×2 (17:25→20:31)
[2022-02-23] MEDS ORDERED: Metoclopramide 5 MG/ML VIAL (10 mg) IV ONE (17:29)
[2022-02-23] MEDS ORDERED: Zosyn per Pharmacy NOTE FOLLOW UP SCH (18:00)
[2022-02-23] MEDS ORDERED: Lactated Ringers 1000 ml BAG 1,000 ML IV SCH (19:00)
[2022-02-23] MEDS: Pantoprazole 80 mg in NS BAG 80 MG/250 ML BAG IV SCH (19:27)
[2022-02-23] MEDS: Propofol 10 mg/ml 100 ML BTL 100 ML IV SCH (19:30)
[2022-02-23 19:39] LABS: Hematocrit 16 % (42-52); Hemoglobin 4.9 g/dL (14.0-18.0)
[2022-02-23] MEDS ORDERED: PHENYLEPHRINE DRIP IVPREMIX 50 MG/250 ML BAG IV ONE (19:40)
[2022-02-23 19:43] LABS: Phosphorus 4.9 mg/dL (2.5-5.0)
[2022-02-23] MEDS ORDERED: Succinylcholine 200 mg VIAL 20 mg/ml 10 ml VIAL (200 mg) ONE (19:49)
[2022-02-23] MEDS ORDERED: Rocuronium 50 mg VIAL 10 mg/ml 5 ml VIAL (50 mg) ONE ×2 (19:49→20:31)
[2022-02-23] MEDS: Propofol 10 mg/ml 100 ML BTL 100 ML ONE ×2 (20:00→23:55)
[2022-02-23] MEDS ORDERED: PHENYLEPHRINE DRIP IVPREMIX 50 MG/250 ML BAG IV SCH (20:00)
[2022-02-23] MEDS ORDERED: Etomidate 40 mg/20 ml (2 MG/ML) 20 ml VIAL (40 mg) ONE (20:00)
[2022-02-23] MEDS ORDERED: Phenylephrine 40 mcg/mL 10mL (400mcg) SYRINGE ONE (20:31)
[2022-02-23] MEDS ORDERED: fentaNYL 250 mcg/5 ml 50 MCG/ML 5 ml VIAL (250 MCG) ONE (20:31)
[2022-02-23 20:35] LABS: Hemoglobin 9.9 g/dL (14.0-18.0); Mean Platelet Volume 7.2 fL (7.4-10.4); Platelet Count 101 10^3/uL (150-450)
[2022-02-23] MEDS ORDERED: CALCIUM GLUCONATE 1GM/50ML NS 1 GM/50 ML BAG IV ONE (20:36)
[2022-02-23 20:54] LABS: Activated Partial Thrombo Time 28.1 seconds (26.0-38.0); Fibrinogen 163.3 mg/dL (110.8-404.3); INR 1.5 (0.89-1.11)
[2022-02-23 21:14] LABS: PCO2 Arterial 31 mmHg (35-45); PO2 Arterial 352 mmHg (80-100)
[2022-02-23 21:16] LABS: Albumin 1.9 g/dL (3.2-5.2); Calcium 6.9 mg/dL (8.6-10.3); Magnesium 1.5 mg/dL (1.9-2.7); Potassium 4.8 mmol/L (3.5-5.0); Sodium 141 mmol/L (135-145)
[2022-02-23 21:18] LABS: Anion Gap 14 mmol/L (2-11); Chloride 114 mmol/L (101-111)
[2022-02-23 21:21] LABS: CO2 Carbon Dioxide 13 mmol/L (22-32)
[2022-02-23 21:22] LABS: ALT 12 U/L (7-52); AST 14 U/L (13-39); Alkaline Phosphatase 28 U/L (35-149); Blood Urea Nitrogen 51 mg/dL (6-24); Glucose 206 mg/dL (70-100); Phosphorus 5.9 mg/dL (2.5-5.0); eGFR CKD-EPI 54.6 (>60)
[2022-02-23] MEDS ORDERED: ceFAZolin VIAL VIAL ONE (21:44)
[2022-02-23] MEDS ORDERED: Phenylephrine 1% NASAL 15 ML BOT ONE (21:51)
[2022-02-23 21:55] LABS: Albumin/Globulin Ratio 1.7 (1-3); Globulin 1.1 g/dL (2-4); Total Protein < 3.0 g/dL (6.4-8.9)
[2022-02-23] MEDS ORDERED: Norepinephrine 16MCG/ML BAG NS 4,000 MCG/250 ML BAG IV SCH (22:00)
[2022-02-23] MEDS ORDERED: Magnesium Sulf 4 GM/100 ML IV 4,000 MG/100 ML BAG IVPB ONE (22:02)
[2022-02-23 23:44] LABS: ABS Lymphocytes 0.9 10^3/ul (1.0-4.8); ABS Monocytes 1.2 10^3/ul (0-0.8); ABS Neutrophils 15.1 10^3/ul (1.5-7.7); Hematocrit 31 % (42-52); Lymphocyte % 5.4 %; Mean Corpuscular HGB Conc 33 g/dL (31-36); Mean Corpuscular Hemoglobin 29 pg (27-31); Mean Corpuscular Volume 88 fL (80-94); Mean Platelet Volume 6.2 fL (7.4-10.4); Nucleated Red Blood Cells % 0.2; Platelet Count 151 10^3/uL (150-450); Red Blood Count 3.48 10^6 /uL (4.18-5.48); Red Cell Distribution Width 14 % (10-15); White Blood Count 17.3 10^3/uL (3.5-10.8)
[2022-02-23 23:45] LABS: PCO2 Arterial 35 mmHg (35-45); PO2 Arterial 398 mmHg (80-100)
[2022-02-23] MEDS: Norepinephrine 16MCG/ML BAGD5W 4,000 MCG/250 ML BAG IV ONE ×2 (23:55→23:57)
[2022-02-23] MEDS: Chlorhexidine MOUTHWASH 0.12% 15 ML UDC SWISH SPIT SCH (23:56)
[2022-02-24 00:03] LABS: ALT 34 U/L (7-52); AST 35 U/L (13-39); Alkaline Phosphatase 28 U/L (35-149); Blood Urea Nitrogen 43 mg/dL (6-24); CO2 Carbon Dioxide 16 mmol/L (22-32); Glucose 154 mg/dL (70-100); Potassium 4.2 mmol/L (3.5-5.0); Sodium 141 mmol/L (135-145); eGFR CKD-EPI 78.7 (>60)
[2022-02-24 00:06] LABS: Anion Gap 6 mmol/L (2-11); Calcium 6.1 mg/dL (8.6-10.3); Chloride 119 mmol/L (101-111); Total Protein < 3.0 g/dL (6.4-8.9)
[2022-02-24] MEDS ORDERED: Propofol 10 mg/ml 100 ML BTL 100 ML ONE (00:17)
[2022-02-24] MEDS: Fluconazole 400 MG IVPREMIX 400 MG/200 ML BAG IVPB SCH ×2 (01:16→03:42)
[2022-02-24] MEDS: Propofol 10 mg/ml 100 ML BTL 100 ML IV SCH ×2 (01:47→08:47)
[2022-02-24] MEDS: Chlorhexidine MOUTHWASH 0.12% 15 ML UDC SWISH SPIT SCH ×3 (01:48→08:54)
[2022-02-24] MEDS: fentaNYL 100 mcg/2 ml 50 MCG/ML VIAL IV SLOW PU PRN ×2 (02:22→09:55)
[2022-02-24 03:29] LABS: ABS Lymphocytes 0.9 10^3/ul (1.0-4.8); ABS Monocytes 0.5 10^3/ul (0-0.8); Hematocrit 38 % (42-52); Hemoglobin 12.3 g/dL (14.0-18.0); Lymphocyte % 6.9 %; Mean Corpuscular HGB Conc 33 g/dL (31-36); Mean Corpuscular Hemoglobin 29 pg (27-31); Mean Corpuscular Volume 89 fL (80-94); Mean Platelet Volume 6.6 fL (7.4-10.4); Platelet Count 152 10^3/uL (150-450); Red Blood Count 4.23 10^6 /uL (4.18-5.48); Red Cell Distribution Width 15 % (10-15); White Blood Count 13.5 10^3/uL (3.5-10.8)
[2022-02-24 03:34] LABS: INR 1.21 (0.89-1.11)
[2022-02-24] MEDS: ZOSYN 3.375 GM Q8H per EXTENDED INFUSION IV SCH ×3 (03:42→19:58)
[2022-02-24 03:44] LABS: Urine Appearance Clear; Urine Bilirubin Negative (Negative); Urine Blood Negative (Negative); Urine Color Yellow; Urine Glucose Negative (Negative); Urine Ketones Negative (Negative); Urine Nitrite Negative (Negative); Urine Protein Negative (Negative); Urine Urobilinogen 0.2 (Negative) (Negative); Urine pH 5.5 (5.0-9.0)
[2022-02-24 03:47] LABS: Urine Creatinine Concentration 79.73 mg/dL
[2022-02-24 03:57] LABS: Calcium 6.8 mg/dL (8.6-10.3); Magnesium 2.4 mg/dL (1.9-2.7); Phosphorus 3.5 mg/dL (2.5-5.0); Potassium 3.8 mmol/L (3.5-5.0); eGFR CKD-EPI 76.9 (>60)
[2022-02-24] MEDS: Pantoprazole 80 mg in NS BAG 80 MG/250 ML BAG IV SCH ×2 (05:46→14:53)
[2022-02-24] MEDS ORDERED: Calcium Gluconate 2 GM in NS 0.9% 100 ml BAG 100 ML IV ONE (08:17)
[2022-02-24] MEDS ORDERED: Lactated Ringers 1000 ml BAG 1,000 ML IV ONE (08:32)
[2022-02-24 10:43] LABS: Hematocrit 27 % (42-52); Hemoglobin 8.8 g/dL (14.0-18.0); Mean Corpuscular HGB Conc 33 g/dL (31-36); Mean Corpuscular Hemoglobin 29 pg (27-31); Mean Corpuscular Volume 90 fL (80-94); Red Blood Count 3.02 10^6 /uL (4.18-5.48); Red Cell Distribution Width 16 % (10-15); White Blood Count 12.4 10^3/uL (3.5-10.8)
[2022-02-24] MEDS ORDERED: Morphine 2 MG/ML SYRINGE ONE (11:07)
[2022-02-24] MEDS ORDERED: Morphine 2 MG/ML SYRINGE IV PRN ×2 (11:16→13:06)
[2022-02-24 11:24] LABS: ABS Lymphocytes 0.3 10^3/ul (1.0-4.8); ABS Monocytes 0.6 10^3/ul (0-0.8); ABS Neutrophils 11.4 10^3/ul (1.5-7.7); Lymphocyte % 2.7 %; Mean Platelet Volume 6.4 fL (7.4-10.4); Nucleated Red Blood Cells % 0.1; Platelet Count 95 10^3/uL (150-450)
[2022-02-24] MEDS ORDERED: HYDROmorphone 0.5 MG/0.5 ML SYRINGE IV SLOW PU PRN (14:21)
[2022-02-24] MEDS ORDERED: HYDROmorphone 0.5 MG/0.5 ML SYRINGE ONE (14:24)
[2022-02-24 16:18] LABS: ABS Basophils 0.1 10^3/ul (0-0.2); ABS Lymphocytes 0.5 10^3/ul (1.0-4.8); ABS Monocytes 0.8 10^3/ul (0-0.8); ABS Neutrophils 15.1 10^3/ul (1.5-7.7); Eosinophil % 0.1 %; Hematocrit 33 % (42-52); Hemoglobin 10.9 g/dL (14.0-18.0); Lymphocyte % 3.3 %; Mean Corpuscular HGB Conc 33 g/dL (31-36); Mean Corpuscular Hemoglobin 29 pg (27-31); Mean Corpuscular Volume 90 fL (80-94); Mean Platelet Volume 7.3 fL (7.4-10.4); Platelet Count 146 10^3/uL (150-450); Red Blood Count 3.71 10^6 /uL (4.18-5.48); Red Cell Distribution Width 16 % (10-15); White Blood Count 16.5 10^3/uL (3.5-10.8)
[2022-02-24] MEDS ORDERED: HYDROmorphone PCA 20 MG/20 ML PCA.SYRING PCA SCH (17:00)
[2022-02-24] MEDS: Acetaminophen IV 1 GM/100ML 1,000 MG/100 ML BAG IV SCH (18:05)
[2022-02-24 22:17] LABS: ABS Basophils 0.1 10^3/ul (0-0.2); ABS Lymphocytes 0.5 10^3/ul (1.0-4.8); ABS Monocytes 0.9 10^3/ul (0-0.8); ABS Neutrophils 14.7 10^3/ul (1.5-7.7); Eosinophil % 0.1 %; Hematocrit 31 % (42-52); Hemoglobin 10.2 g/dL (14.0-18.0); Mean Corpuscular HGB Conc 33 g/dL (31-36); Mean Corpuscular Hemoglobin 29 pg (27-31); Mean Corpuscular Volume 88 fL (80-94); Nucleated Red Blood Cells % 0.1; Platelet Count 154 10^3/uL (150-450); Red Blood Count 3.56 10^6 /uL (4.18-5.48); Red Cell Distribution Width 16 % (10-15); White Blood Count 16.1 10^3/uL (3.5-10.8)
[2022-02-25] MEDS: Acetaminophen IV 1 GM/100ML 1,000 MG/100 ML BAG IV SCH ×4 (00:41→18:06)
[2022-02-25] MEDS ORDERED: Fluconazole 400 MG IVPREMIX 400 MG/200 ML BAG IVPB SCH (01:00)
[2022-02-25] MEDS: Pantoprazole 80 mg in NS BAG 80 MG/250 ML BAG IV SCH ×3 (01:26→20:57)
[2022-02-25] MEDS: ZOSYN 3.375 GM Q8H per EXTENDED INFUSION IV SCH ×3 (04:18→19:51)
[2022-02-25 04:30] LABS: ABS Lymphocytes 0.4 10^3/ul (1.0-4.8); ABS Monocytes 0.8 10^3/ul (0-0.8); ABS Neutrophils 13.2 10^3/ul (1.5-7.7); Eosinophil % 0.1 %; Hematocrit 29 % (42-52); Hemoglobin 9.4 g/dL (14.0-18.0); Lymphocyte % 3.1 %; Mean Corpuscular HGB Conc 33 g/dL (31-36); Mean Corpuscular Hemoglobin 29 pg (27-31); Mean Corpuscular Volume 88 fL (80-94); Mean Platelet Volume 7.1 fL (7.4-10.4); Nucleated Red Blood Cells % 0.1; Platelet Count 139 10^3/uL (150-450); Red Blood Count 3.26 10^6 /uL (4.18-5.48); Red Cell Distribution Width 16 % (10-15); White Blood Count 14.5 10^3/uL (3.5-10.8)
[2022-02-25 04:53] LABS: Calcium 7.2 mg/dL (8.6-10.3); Magnesium 1.8 mg/dL (1.9-2.7); Potassium 3.9 mmol/L (3.5-5.0); eGFR CKD-EPI 100.6 (>60)
[2022-02-25] MEDS: Magnesium Sulfate 2 gm BAG 2 GM/50 ML BAG IVPB ONE ×2 (07:34→08:07)
[2022-02-25] MEDS: KCL 10 MEQ/50 ML IVPREMIX 10 MEQ/50 ML BAG IV SCH ×3 (07:35→09:14)
[2022-02-25] MEDS: Prochlorperazine 5 mg/ml 2 ml VIAL (10 mg) IV PRN ×3 (07:51→21:34)
[2022-02-25] MEDS ORDERED: Prochlorperazine 5 mg/ml 2 ml VIAL (10 mg) ONE (07:52)
[2022-02-25] MEDS: HYDROmorphone 1 MG/1 ML SYRINGE IV SLOW PU PRN ×3 (08:36→21:40)
[2022-02-25] MEDS: Lactated Ringers 1000 ml BAG 1,000 ML IV SCH (10:45)
[2022-02-25] MEDS: Nystatin SUSPENSION 100,000 UNITS/ML UDC PO SCH ×3 (13:52→21:26)
[2022-02-25 16:30] LABS: Hematocrit 28 % (42-52)
[2022-02-25 22:12] LABS: Hematocrit 33 % (42-52); Hemoglobin 10.4 g/dL (14.0-18.0)
[2022-02-26] MEDS: Lactated Ringers 1000 ml BAG 1,000 ML IV SCH ×2 (00:22→17:41)
[2022-02-26] MEDS: Acetaminophen IV 1 GM/100ML 1,000 MG/100 ML BAG IV SCH ×4 (01:30→18:36)
[2022-02-26] MEDS: ZOSYN 3.375 GM Q8H per EXTENDED INFUSION IV SCH ×3 (03:43→19:02)
[2022-02-26 05:07] LABS: ABS Eosinophils 0.1 10^3/ul (0-0.6); ABS Lymphocytes 0.6 10^3/ul (1.0-4.8); ABS Monocytes 0.9 10^3/ul (0-0.8); ABS Neutrophils 12.7 10^3/ul (1.5-7.7); Eosinophil % 0.4 %; Hematocrit 29 % (42-52); Hemoglobin 9.3 g/dL (14.0-18.0); Lymphocyte % 4.4 %; Mean Corpuscular HGB Conc 33 g/dL (31-36); Mean Corpuscular Hemoglobin 29 pg (27-31); Mean Corpuscular Volume 89 fL (80-94); Mean Platelet Volume 6.8 fL (7.4-10.4); Nucleated Red Blood Cells % 0.1; Platelet Count 150 10^3/uL (150-450); Red Blood Count 3.23 10^6 /uL (4.18-5.48); Red Cell Distribution Width 16 % (10-15); White Blood Count 14.3 10^3/uL (3.5-10.8)
[2022-02-26 05:33] LABS: Calcium 7.6 mg/dL (8.6-10.3); Magnesium 1.8 mg/dL (1.9-2.7); Potassium 3.6 mmol/L (3.5-5.0); eGFR CKD-EPI 106.3 (>60)
[2022-02-26] MEDS: Pantoprazole 80 mg in NS BAG 80 MG/250 ML BAG IV SCH ×3 (06:47→16:54)
[2022-02-26] MEDS ORDERED: Magnesium Sulfate IV 1GM/100ML 1 GM/100 ML BAG IV ONE (07:25)
[2022-02-26] MEDS: Nystatin SUSPENSION 100,000 UNITS/ML UDC PO SCH ×4 (09:21→21:36)
[2022-02-26 17:46] LABS: Hematocrit 33 % (42-52); Hemoglobin 10.8 g/dL (14.0-18.0)
[2022-02-26] MEDS: HYDROmorphone 1 MG/1 ML SYRINGE IV SLOW PU PRN ×2 (17:57→23:32)
[2022-02-27] MEDS: Lactated Ringers 1000 ml BAG 1,000 ML IV SCH (01:10)
[2022-02-27] MEDS: Acetaminophen IV 1 GM/100ML 1,000 MG/100 ML BAG IV SCH ×4 (01:55→20:13)
[2022-02-27] MEDS: Pantoprazole 80 mg in NS BAG 80 MG/250 ML BAG IV SCH ×3 (03:57→22:20)
[2022-02-27] MEDS: ZOSYN 3.375 GM Q8H per EXTENDED INFUSION IV SCH ×3 (03:57→21:10)
[2022-02-27 04:00] LABS: ABS Eosinophils 0.1 10^3/ul (0-0.6); ABS Lymphocytes 0.8 10^3/ul (1.0-4.8); ABS Neutrophils 9.9 10^3/ul (1.5-7.7); Eosinophil % 1.1 %; Hematocrit 30 % (42-52); Hemoglobin 9.5 g/dL (14.0-18.0); Lymphocyte % 6.9 %; Mean Corpuscular HGB Conc 32 g/dL (31-36); Mean Corpuscular Hemoglobin 29 pg (27-31); Mean Corpuscular Volume 89 fL (80-94); Mean Platelet Volume 7.2 fL (7.4-10.4); Platelet Count 184 10^3/uL (150-450); Red Blood Count 3.34 10^6 /uL (4.18-5.48); Red Cell Distribution Width 16 % (10-15); White Blood Count 11.9 10^3/uL (3.5-10.8)
[2022-02-27 04:34] LABS: Calcium 7.8 mg/dL (8.6-10.3); Magnesium 1.8 mg/dL (1.9-2.7); Phosphorus 2.8 mg/dL (2.5-5.0); Potassium 3.3 mmol/L (3.5-5.0)
[2022-02-27] MEDS ORDERED: Magnesium Sulfate 2 gm BAG 2 GM/50 ML BAG IVPB ONE ×2 (04:46→07:14)
[2022-02-27] MEDS: D5W NS 0.9% 20Meq KCL 1000 ml 1,000 ML IV SCH ×2 (04:59→19:28)
[2022-02-27] MEDS: Nystatin SUSPENSION 100,000 UNITS/ML UDC PO SCH ×4 (09:04→21:13)
[2022-02-27] MEDS: HYDROmorphone 1 MG/1 ML SYRINGE IV SLOW PU PRN (22:21)
[2022-02-28] MEDS: HYDROmorphone 1 MG/1 ML SYRINGE IV SLOW PU PRN ×2 (03:33→08:24)
[2022-02-28] MEDS: Acetaminophen IV 1 GM/100ML 1,000 MG/100 ML BAG IV SCH ×2 (03:33→09:32)
[2022-02-28] MEDS: ZOSYN 3.375 GM Q8H per EXTENDED INFUSION IV SCH ×3 (04:33→19:54)
[2022-02-28 06:19] LABS: Hematocrit 29 % (42-52); Hemoglobin 9.2 g/dL (14.0-18.0); Mean Corpuscular HGB Conc 31 g/dL (31-36); Mean Corpuscular Hemoglobin 29 pg (27-31); Mean Corpuscular Volume 93 fL (80-94); Red Blood Count 3.13 10^6 /uL (4.18-5.48); Red Cell Distribution Width 17 % (10-15); White Blood Count 7.7 10^3/uL (3.5-10.8)
[2022-02-28 06:20] LABS: ABS Eosinophils 0.2 10^3/ul (0-0.6); ABS Lymphocytes 0.6 10^3/ul (1.0-4.8); ABS Monocytes 0.9 10^3/ul (0-0.8); Eosinophil % 2.3 %; Lymphocyte % 7.5 %
[2022-02-28 06:32] LABS: Calcium 7.3 mg/dL (8.6-10.3); Potassium 3.1 mmol/L (3.5-5.0); eGFR CKD-EPI 109.2 (>60)
[2022-02-28] MEDS ORDERED: Potassium Chlor 20 meq TAB.ER PO ONE (07:39)
[2022-02-28] MEDS: Nystatin SUSPENSION 100,000 UNITS/ML UDC PO SCH ×4 (08:24→21:35)
[2022-02-28 09:28] LABS: Mean Platelet Volume 7.8 fL (7.4-10.4); Platelet Count 194 10^3/uL (150-450)
[2022-02-28] MEDS: Pantoprazole 80 mg in NS BAG 80 MG/250 ML BAG IV SCH (09:31)
[2022-02-28] MEDS: Pantoprazole VIAL 40 MG VIAL IV SCH (10:01)
[2022-03-01] MEDS: ZOSYN 3.375 GM Q8H per EXTENDED INFUSION IV SCH ×2 (04:41→12:27)
[2022-03-01 08:17] LABS: Hematocrit 31 % (42-52); Hemoglobin 10.2 g/dL (14.0-18.0); Mean Corpuscular HGB Conc 33 g/dL (31-36); Mean Corpuscular Hemoglobin 30 pg (27-31); Mean Corpuscular Volume 90 fL (80-94); Mean Platelet Volume 7.1 fL (7.4-10.4); Platelet Count 306 10^3/uL (150-450); Red Blood Count 3.44 10^6 /uL (4.18-5.48); Red Cell Distribution Width 16 % (10-15); White Blood Count 7.2 10^3/uL (3.5-10.8)
[2022-03-01 09:04] LABS: Calcium 7.9 mg/dL (8.6-10.3); Magnesium 1.8 mg/dL (1.9-2.7); Potassium 3.4 mmol/L (3.5-5.0); eGFR CKD-EPI 105.3 (>60)
[2022-03-01] MEDS ORDERED: Magnesium Sulfate 2 gm BAG 2 GM/50 ML BAG IVPB ONE (09:06)
[2022-03-01] MEDS: Nystatin SUSPENSION 100,000 UNITS/ML UDC PO SCH ×4 (09:58→22:12)
[2022-03-01] MEDS: KCL 20 MEQ/100 ML IVPREMIX 20 MEQ/100 ML BAG IV SCH ×2 (10:18→12:31)
[2022-03-01] MEDS: Pantoprazole VIAL 40 MG VIAL IV SCH (10:19)
[2022-03-01] MEDS ORDERED: Senna TAB 8.6 mg TAB PO PRN (15:11)
[2022-03-01] MEDS ORDERED: Polyethylene Glycol 3350 17 GM PACKET PO PRN (15:11)
[2022-03-02] MEDS ORDERED: KCL 20 MEQ/100 ML IVPREMIX 20 MEQ/100 ML BAG IV SCH (09:00)
[2022-03-02] MEDS ORDERED: Magnesium Sulfate 2 gm BAG 2 GM/50 ML BAG IVPB ONE (09:00)
[2022-03-02] MEDS: Nystatin SUSPENSION 100,000 UNITS/ML UDC PO SCH ×2 (10:56→16:03)
[2022-03-02 11:39] VITALS: BP 135/71
== END 2022-03-02 16:05 | disposition home or self-care (01) | DRG 356 ==
LOC: ED 13:01 → EDHOLD 17:27 → ICU 18:41 → SSU 02-27 19:38
PROVIDERS: ADMIT Internal Medicine; ATTEND Internal Medicine